=== PATIENT | female | born 1935 | race Caucasian/White ===

== ENCOUNTER 2018-01-28 02:43 | Inpatient (IN) | payer MEDICARE, OTHER ==
[2018-01-28 03:17] LABS: Bilirubin Negative (Negative); Blood, Urine Negative (Negative); Clarity CLOUDY (Clear); Glucose, Urine (Dipstick) Negative (Negative); Leukocyte Large (Negative); Nitrite Positive (Negative); Protein, Urine (Dipstick) Negative (Neg-Trace); Specific Gravity, Urine 1.008 (1.002-1.036)
[2018-01-28 03:19] LABS: Bacteria/HPF 4+ HPF (None Seen); Hyaline Casts/LPF 0-3 HYALINE CAST LPF (0-3 Hyaline); Pathc Cast-AUWi Flag 0.43 (0-2.49); RBC/HPF 0-3 HPF (0-3); Squamous Epithelial None Seen HPF (0-3); WBC/HPF 21-50 HPF (0-3)
[2018-01-28 03:22] LABS: Hemoglobin 15.5 g/dL (12.0-16.0); Mean Corpuscular HGB CONC 33.3 g/dL (32.0-36.0); Mean Corpuscular Hemoglobin 30.8 pg (27.0-31.0); Mean Corpuscular Volume 92.6 fL (78.0-98.0); Red Blood Cell (RBC) Count 5.04 mill/uL (4.20-5.40); White Blood Cell (WBC) Count 6.8 thou/uL (4.8-10.8)
[2018-01-28 03:37] LABS: #Lymphocytes 0.9 thou/uL (1.20-3.40); #Monocytes 0.4 thou/uL (0.11-0.59); #Neutrophils 5.5 thou/uL (1.40-6.50); %Basophils 0.4 % (0.0-1.0); %Eosinophils 0.5 % (0.0-10.0); %Lymphocytes 13.2 % (21.0-51.0); %Monocytes 5.3 % (0.0-10.0); %Neutrophils 80.7 % (42.0-75.0); Mean Platelet Volume 9.1 fL (7.4-10.4); PLT Morphology Comment Appears Decreased; Platelet Count 84 thou/uL (130-400)
[2018-01-28] MEDS ORDERED: Ondansetron PF 4 MG/2 ML Vial ONE ×2 (03:38→11:27)
[2018-01-28] MEDS ORDERED: Morphine 4 MG/ML VIAL ONE (03:38)
[2018-01-28 03:43] LABS: ALT (SGPT) 10 U/L (8-55); AST (SGOT) 16 U/L (5-34); Alkaline Phosphatase 63 U/L (40-150); Anion Gap 15 mmol/L (10-20); BUN (Urea Nitrogen) 22 mg/dL (9.8-20.1); Calc. Creatinine Clearance 0 mL/min (70-130); Calcium 10.3 mg/dL (7.8-10.44); Carbon Dioxide 23 mmol/L (23-31); Chloride 104 mmol/L (98-107); Estimated GFR-MDRD 37; Globulin 3.1 g/dL (2.4-3.5); Glucose 140 mg/dL (83-110); Lipase 42 U/L (8-78); Potassium 3.7 mmol/L (3.5-5.1); Protein, Total 7.1 g/dL (6.0-8.3); Sodium 138 mmol/L (136-145)
[2018-01-28] MEDS ORDERED: cefTRIAXone\\ROCEPHIN 1 GM VIAL ONE (03:45)
[2018-01-28 03:57] LABS: CKMB 1.4 ng/mL (0-6.6); Troponin I Less than 0.010 ng/mL (< 0.028)
[2018-01-28] MEDS ORDERED: Oxymetazoline HCl 0.05% ( 15 ML ) ONE (04:53)
[2018-01-28] MEDS ORDERED: Lidocaine 2% Jelly 5 ML TUBE ONE (04:53)
[2018-01-28] MEDS ORDERED: Fentanyl 100 MCG/2 ML VIAL ONE ×3 (06:09→12:35)
[2018-01-28] MEDS ORDERED: Ondansetron PF 4 MG/2 ML Vial IVP PRN (07:54)
[2018-01-28] MEDS ORDERED: Ondansetron ODT 4 MG TAB SL PRN (07:54)
[2018-01-28] MEDS ORDERED: Morphine 2 MG/ML SYRINGE SLOW IVP PRN (07:55)
[2018-01-28] MEDS ORDERED: D5 1/2 NS w/40 mEq KCL 1,000 ML IV SCH (08:00)
[2018-01-28 08:06] VITALS: BMI 17.2
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
[2018-01-28] MEDS ORDERED: ISOVUE-370 76%-LOCM 1 ML ONE (10:26)
[2018-01-28] MEDS ORDERED: cefOXitin 2 GM in Sodium Chloride 0.9% 100 ML IVPB SCH (10:30)
[2018-01-28] MEDS ORDERED: ePHEDrine/0.9% NaCl/PF SYRINGE 50 mg/10 ml ONE (11:27)
[2018-01-28] MEDS ORDERED: Succinylcholine Chloride 20 MG/ML 10 ml SYRINGE FS ONE (11:27)
[2018-01-28] MEDS ORDERED: Lidocaine 1% PF 5 ML VIAL ONE (11:27)
[2018-01-28] MEDS ORDERED: PROPOFOL 200 MG/20 ML VIAL ONE (11:27)
[2018-01-28] MEDS ORDERED: Glycopyrrolate 0.2 MG/ML 5 ML SYRINGE ONE (11:27)
[2018-01-28] MEDS ORDERED: PHENYLEPHRINE-NS 100 MCG/ML 10 ML SYRINGE ONE (11:27)
[2018-01-28] MEDS ORDERED: Promethazine HCl 25 MG/ML VIAL IM PRN ×2 (11:49→13:01)
[2018-01-28] MEDS ORDERED: Ondansetron HCl/PF 4 MG/2 ML Vial IVP PRN (11:49)
[2018-01-28] MEDS ORDERED: Promethazine HCl 25 MG/ML VIAL SLOW IVP PRN (11:49)
[2018-01-28] MEDS ORDERED: hydrALAZINE 20 MG/ML VIAL SLOW IVP PRN (13:01)
[2018-01-28] MEDS ORDERED: Morphine 4 MG/ML VIAL SLOW IVP PRN (13:01)
[2018-01-28] MEDS ORDERED: Acetaminophen 1,000 MG in Premix Bag 1 BAG IVPB SCH (13:15)
[2018-01-28] MEDS: Sodium Chloride 0.9% 1,000 ML IV SCH (13:55)
[2018-01-28] MEDS ORDERED: cefOXitin Sodium 1 GM in Sodium Chloride 0.9% 100 ML IVPB SCH (14:00)
--- NOTE | 2018-01-28 16:04 | CT ---
PRELIMINARY REPORT/[facility]/EMERGENTY AFTER-HOURS PROCEDURE Addendum created by Mack Ramos MD on 01/28/2018 4:45 AM Central Time ([place] & [place]) Findings disc ussed with Heraclio Ladd MD at time of interpretation. Initial Report created on 01/28/2018 4:31 AM Central Time ([place] & [place]) EXAM: CT Abdomen and Pelvis With Intravenous Contrast EXAM DATE/TIME: 01/28/2018 4:04 AM CLINICAL HISTORY: 82 years old, female; Pain; Abdominal pain; Generalized TECHNIQUE: Axial computed tomography images of the abdomen and pelvis with intravenous contrast. Coronal reformatted images were created and reviewed. COMPARISON: No relevant prior studies available. FINDINGS: Lower thorax: No acute findings. ABDOMEN: Liver: Normal. No mass. Gallbladder and bile ducts: Cholelithiasis. No cholecystitis or biliary ductal dilatation. Pancreas: Indeterminate 1.7 cm cystic lesion of the uncinate process of the pancreas, kidneys benign or malignant. Spleen: Normal. No splenomegaly. Adrenals: Normal. No mass. Kidneys and ureters: Chronic medical renal disease. Stomach and bowel: High-grade obstructing cecal volvulus resulting in obstruction of the proximal asc ending colon and obstruction of the distal ileum. No bowel wall thickening. No bowel wall thickening. Appendix: Appendix not confidently visualized. No evidence of appendicitis. PELVIS: Bladder: Unremarkable as visualized. Reproductive: Unremarkable as visualized. ABDOMEN and PELVIS: Intraperitoneal space: Trace volume ascites. No pneumoperitoneum or abscess. Bones/joints: Left hip prosthesis. Soft tissues: Unremarkable. Vasculature: IVC filter present. No pneumatosis or portal/mesenteric venous gas. Lymph nodes: Normal. No enlarged lymph nodes. Other findings: Right lower quadrant urostomy. IMPRESSION: High-grade obstructing cecal volvulus resulting in obstruction of the proximal ascending colon and ob struction of the distal ileum. Trace volume ascites. Recommend emergent surgical consultation. Thank you for allowing us to participate in the care of your patient. Dictated and Authenticated by: Mack Ramos MD 01/28/2018 4:31 AM Central Time ([place] & [place]) FINAL REPORT CT ABDOMEN AND PELVIS WITH CONTRAST: HISTORY: Abdominal pain. COMPARISON: CT from 2008. FINDINGS: Findings and impression are concordant with the preliminary report. Small volume ascites is concerni ng for ischemia of the cecum. There is an air fluid level indicating lack of normal motility. There is also dilatation of the renal collecting systems bilaterally, likely from mass effect from the ost xu. POS: EAMON
--- NOTE | 2018-01-28 17:40 | OP ---
DATE OF PROCEDURE: 01/28/2018 PREOPERATIVE DIAGNOSIS: Cecal volvulus. POSTOPERATIVE DIAGNOSIS: Cecal volvulus. PROCEDURES: Exploratory laparotomy, lysis of adhesions, right colectomy with isoperistaltic ileal tr ansverse colon anastomosis. SURGEON: Mg Martin M.D. ANESTHESIA: General. ESTIMATED BLOOD LOSS: Minimal. COMPLICATIONS: None. SPECIMEN: Right colon. FINDINGS: Cecal volvulus. TECHNIQUE: Patient was taken to the operating room and placed supine on the table. After general an esthetic was obtained, a Navas tube was placed in her urostomy and inflated to 2 mL. This controlled the urine from the urostomy during the procedure. The abdomen was prepped and draped in a sterile f ashion. The urostomy site is covered with a Tegaderm sterile. Midline incision was made, cut dissec t down into the abdominal cavity. Some of intraabdominal adhesions were taken down. There were obvi ous ischemic changes to the cecum. The right colon was mobilized. This was somewhat difficult becau se of the urostomy in the right lower quadrant. Care was taken to avoid injury or ostomy. Some adhe sions in the pelvis were taken down using sharp dissection. CELINA-75 stapler was fired across the term inal ileum, a reload was fired across the proximal transverse colon. The resultant mesentery was marizol en using impact LigaSure. The small bowel was brought up against the transverse colon in isoperistal tic antimesenteric fashion. Enterotomy was made on each and anastomosis performed using CELINA-75. The common enterotomy was closed using a running Vicryl suture, was oversewn using silk sutures. Crotch stitch placed using silk sutures. The mesenteric defect was closed using silk sutures. There was n o bleeding in the abdomen. The abdomen was irrigated using sterile solution. There was no damage to any intraabdominal structures. All instrument counts, needle counts, lap counts are correct. Midli ne fascia closed with #1 PDS from the top and the bottom and tied in the middle. Subcutaneous tissue s were irrigated and closed using 3-0 Vicryl, 4-0 Monocryl, and Dermabond. The patient was en route to recovery in stable condition. All instrument counts, needle counts, lap counts are correct.
[2018-01-28] MEDS: Acetaminophen 1,000 MG in Premix Bag 1 BAG IVPB SCH (17:48)
[2018-01-28] MEDS: cefOXitin Sodium 1 GM in Sodium Chloride 0.9% 100 ML IVPB SCH (18:45)
[2018-01-28] MEDS: Enoxaparin Sodium 40 MG/0.4 ML SYRINGE SC SCH (20:57)
[2018-01-28] MEDS: Famotidine/PF 20 mg/2ml Vial SLOW IVP SCH (20:57)
[2018-01-29] MEDS: Famotidine 20 MG TAB PO SCH ×3 (00:42→20:27)
[2018-01-29] MEDS: Acetaminophen 1,000 MG in Premix Bag 1 BAG IVPB SCH ×2 (00:43→06:03)
[2018-01-29] MEDS: Sodium Chloride 0.9% 1,000 ML IV SCH ×2 (00:48→10:18)
[2018-01-29] MEDS: cefOXitin Sodium 1 GM in Sodium Chloride 0.9% 100 ML IVPB SCH (02:52)
[2018-01-29 06:27] LABS: #Lymphocytes 0.7 thou/uL (1.20-3.40); #Monocytes 0.4 thou/uL (0.11-0.59); #Neutrophils 8.1 thou/uL (1.40-6.50); %Basophils 0.1 % (0.0-1.0); %Eosinophils 0.1 % (0.0-10.0); %Lymphocytes 7.2 % (21.0-51.0); %Monocytes 4.8 % (0.0-10.0); %Neutrophils 87.8 % (42.0-75.0); Hemoglobin 14.4 g/dL (12.0-16.0); Mean Corpuscular HGB CONC 31.9 g/dL (32.0-36.0); Mean Corpuscular Hemoglobin 30.1 pg (27.0-31.0); Mean Corpuscular Volume 94.3 fL (78.0-98.0); Mean Platelet Volume 9.7 fL (7.4-10.4); Platelet Count 85 thou/uL (130-400); RBC Distribution Width 12.4 % (11.5-14.5); White Blood Cell (WBC) Count 9.2 thou/uL (4.8-10.8)
[2018-01-29 06:28] LABS: Anion Gap 11 mmol/L (10-20); BUN (Urea Nitrogen) 20 mg/dL (9.8-20.1); Calc. Creatinine Clearance 22 mL/min (70-130); Calcium 8.7 mg/dL (7.8-10.44); Carbon Dioxide 21 mmol/L (23-31); Chloride 111 mmol/L (98-107); Estimated GFR-MDRD 36; Glucose 124 mg/dL (83-110); Potassium 4.1 mmol/L (3.5-5.1); Sodium 139 mmol/L (136-145)
--- NOTE | 2018-01-29 08:13 | PRG ---
DATE OF SERVICE: 01/29/2018 Postop day #1 right colectomy for cecal volvulus. Ms. Olsen has no complaints. She denies pain, naus ea. PHYSICAL EXAMINATION: VITAL SIGNS: She is afebrile. Vital signs are stable. Her NG tube is mostly clear. ABDOMEN: Soft, nondistended. Midline incision healing well. New ostomy is in place with clear urin e. ASSESSMENT: Postop day #1 right colectomy for cecal volvulus. PLAN: Discontinue NG, clear liquids. We will get her up and out of bed.
[2018-01-29] MEDS: Amlodipine 5 MG TAB PO SCH (10:07)
[2018-01-29] MEDS: Famotidine/PF 20 mg/2ml Vial SLOW IVP SCH ×2 (10:08→21:28)
[2018-01-29] MEDS: Morphine 2 MG/ML SYRINGE SLOW IVP PRN ×2 (10:31→16:59)
[2018-01-29] MEDS: Ondansetron PF 4 MG/2 ML Vial IVP PRN (19:35)
[2018-01-29] MEDS: Enoxaparin Sodium 40 MG/0.4 ML SYRINGE SC SCH (20:26)
[2018-01-30] MEDS: Sodium Chloride 0.9% 1,000 ML IV SCH ×3 (02:00→15:24)
[2018-01-30] MEDS: Morphine 2 MG/ML SYRINGE SLOW IVP PRN ×2 (03:02→15:16)
[2018-01-30] MEDS: Famotidine 20 MG TAB PO SCH ×2 (10:03→21:30)
[2018-01-30] MEDS: Famotidine/PF 20 mg/2ml Vial SLOW IVP SCH ×2 (10:03→21:30)
[2018-01-30] MEDS: Amlodipine 5 MG TAB PO SCH (10:03)
[2018-01-30] MEDS ORDERED: Digoxin 0.125 MG TAB PO SCH (10:45)
[2018-01-30] MEDS ORDERED: Diltiazem 125 MG in Sodium Chloride 0.9% 100 ML IVPB PRN (12:12)
--- NOTE | 2018-01-30 12:51 | PDOC.PN ---
- Subjective Encounter Start Date: 01/30/18 Encounter Start Time: 12:50 Subjective: briseida & examined at bedside.IM team consulted for a-fib w Fast HR -: pt reports no chest discomfort,palpitations,SOB.dizziness/nausea -: no h/o same. - Objective Resuscitation Status: 01/30/18 11:45 Resuscitation Status Routine Resuscitation Status: DNAR: NO Resuscitation Discussed with: Per comment, discussed with patient and she understood MAR Reviewed: Yes Vital Signs & Weight: Vital Signs (12 hours) Temp Pulse Resp BP BP BP Pulse Ox 01/30/18 11:57 109 H 16 135/81 01/30/18 11:48 132 H 125/76 01/30/18 11:08 144 H 01/30/18 10:58 99.4 F 135 H 18 131/92 H 98 01/30/18 10:03 125 H 01/30/18 08:00 99.0 F 18 124/66 95 01/30/18 07:30 125 H 01/30/18 04:50 98.2 F 90 16 132/70 100 01/30/18 03:15 97 Weight Admit Weight 100 lb 9 oz Weight 100 lb 9 oz I&O: 01/29/18 01/30/18 01/31/18 06:59 06:59 06:59 Intake Total 700 2390 Output Total 350 1400 Balance 350 990 Result Diagrams: 01/29/18 05:19 01/29/18 05:19 Additional Labs: Laboratory Tests 06/29/17 01/28/18 01/28/18 09:08 03:08 03:08 Creatinine 1.25 H 1.36 H Troponin I Less than 0.010 B-Natriuretic Peptide 01/29/18 01/30/18 05:19 09:50 Creatinine 1.40 H Troponin I B-Natriuretic Peptide 400.2 H EKG Reviewed by me: Yes (A-fib w RVR) Phys Exam - Physical Examination Constitutional: NAD thin and frail looking HEENT: PERRLA, sclera anicteric, oral pharynx no lesions mucosa dry Neck: no nodes, no JVD, supple, full ROM Respiratory: no wheezing, no rales, no rhonchi, clear to auscultation bilateral Cardiovascular: no significant murmur, irregular Gastrointestinal: soft, non-tender, no distention, positive bowel sounds urostomy in abdomen in place w clear urine Musculoskeletal: no edema, pulses present Neurological: non-focal, normal sensation, moves all 4 limbs Psychiatric: normal affect, A&O x 3 Skin: no rash Dx/Plan (1) Atrial fibrillation with RVR Code(s): I48.91 - UNSPECIFIED ATRIAL FIBRILLATION Status: Acute (2) UTI (urinary tract infection) Status: Acute Comment: on levaquin (3) Thrombocytopenia Code(s): D69.6 - THROMBOCYTOPENIA, UNSPECIFIED Status: Acute (4) Volvulus Code(s): K56.2 - VOLVULUS Status: Acute Comment: s/p R hemicolectomy .POD#2 (5) H/O malignant neoplasm of colon Code(s): Z85.038 - PERSONAL HISTORY OF MALIGNANT NEOPLASM OF LARGE INTESTINE Status: Chronic (6) CKD (chronic kidney disease) stage 3, GFR 30-59 ml/min Status: Chronic (7) HTN (hypertension) Code(s): I10 - ESSENTIAL (PRIMARY) HYPERTENSION Status: Chronic Qualifiers: Hypertension type: essential hypertension Qualified Code(s): I10 - Essential (primary) hypertension (8) History of bladder cancer Code(s): Z85.51 - PERSONAL HISTORY OF MALIGNANT NEOPLASM OF BLADDER Status: Chronic - Plan continue antibiotics, PT/OT, clinical social work therapist, out of bed/ambulate, DVT proph w/ lovenox one dos edigoxin as IV Cardiazem couldn't be given on surgical floor -: transfer to Tele & will try cardiazem IV bolus,& drip if HR not controlled -: ECHO.BNP.TSH check.Serial troponins.lyle due to stress from Sx and infect -: Not a candidate for OAC due to recent Sx and advanced age/TCP/comorbidities -: Monitor BP.Stop amlodipine as will lyle need PO CCB or BB for rate contro * .will continue to follow. * HD stable for now * Send urine for Cx and cont ABx for now.no evidence of sepsis. * Low platelets.monitor.cont DVT prophylactic dose of lovenox for now as high risk for DVT. * code status discussed -Says she is a DNR.Order entered * am labs Review of Systems - Review of Systems Constitutional: negative: fever, chills, sweats, weakness, malaise, other Respiratory: Dry. negative: Cough, Shortness of Breath, Hemoptysis, SOB with Excertion, Pleuritic Pain, Sputum, Wheezing Cardiovascular: negative: chest pain, palpitations, orthopnea, paroxysmal nocturnal dyspnea, edema, light headedness, other Gastrointestinal: negative: Nausea, Vomiting, Abdominal Pain, Diarrhea, Constipation, Melena, Hematochezia, Other Genitourinary: negative: Dysuria, Frequency, Incontinence, Hematuria, Retention , Other Musculoskeletal: negative: Neck Pain, Shoulder Pain, Arm Pain, Back Pain, Hand Pain, Leg Pain, Foot Pain, Other Skin: negative: Rash, Lesions, Joe, Bruising, Other Neurological: negative: Weakness, Numbness, Incoordination, Change in Speech, Confusion, Seizures, Other - Medications/Allergies Allergies/Adverse Reactions: Allergies Allergy/AdvReac Type Severity Reaction Status Date / Time diphenhydramine HCl Allergy Severe Verified 01/28/18 08:13 [From [facility]] Hives Medications: Current Medications Albuterol/Ipratropium (Duoneb) 3 ml NEB Q4H PRN PRN Reason: Wheezing Diltiazem HCl (Cardizem Inj) 10 mg SLOW IVP ONE PRN PRN Reason: for HR> 100 Stop: 02/02/18 09:41 Last Admin: 01/30/18 11:48 Dose: 10 mg Enoxaparin Sodium (Lovenox) 40 mg SC 2100 [facility] Last Admin: 01/29/18 20:26 Dose: 40 mg Famotidine (Pepcid) 20 mg PO Q12HR [facility] Last Admin: 01/30/18 10:03 Dose: Not Given Famotidine (Pepcid) 20 mg SLOW IVP Q12HR [facility] Last Admin: 01/30/18 10:03 Dose: Not Given Hydralazine HCl (Apresoline) 10 mg SLOW IVP Q4H PRN PRN Reason: SBP > 170 or DBP > 100 Sodium Chloride (Normal Saline 0.9%) 1,000 mls @ 70 mls/hr IV .[id number] [facility] Last Admin: 01/30/18 02:00 Dose: 1,000 mls Levofloxacin 500 mg/ Device 100 mls @ 100 mls/hr IVPB Q24HR [facility] Last Admin: 01/30/18 11:24 Dose: 100 mls Diltiazem HCl 125 mg/ Sodium (Chloride) 125 mls @ 5 mls/hr IVPB INF PRN; Protocol PRN Reason: HR>120 Morphine Sulfate (Morphine) 2 mg SLOW IVP Q2H PRN PRN Reason: Mild Pain (1-3) Last Admin: 01/30/18 03:02 Dose: 2 mg Morphine Sulfate (Morphine) 4 mg SLOW IVP Q2H PRN PRN Reason: Severe Pain (7-10) Ondansetron HCl (Zofran) 4 mg IVP Q6H PRN PRN Reason: Nausea/Vomiting Last Admin: 01/29/18 19:35 Dose: 4 mg Promethazine HCl (Phenergan) 12.5 mg IM Q4H PRN PRN Reason: Nausea/Vomiting Sodium Chloride (Flush - Normal Saline) 10 ml IVF PRN PRN PRN Reason: Saline Flush
--- NOTE | 2018-01-30 13:15 | EKG ---
Test Reason : Blood Pressure : / mmHG Vent. Rate : 155 BPM Atrial Rate : 150 BPM P-R Int : 000 ms QRS Dur : 080 ms QT Int : 282 ms P-R-T Axes : 000 -17 165 degrees QTc Int : 453 ms Atrial fibrillation with rapid ventricular response Abnormal ECG When compared with ECG of 28-JAN-2018 02:51, (Unconfirmed) Atrial fibrillation has replaced Sinus rhythm Vent. rate has increased BY [address] now depressed in Anterolateral leads T wave inversion now evident in Lateral leads Confirmed by ERICK TODD, DR. Weinstein ([id number]) on 01/30/2018 1:15:35 PM Referred By: YASMIN Confirmed By:DR. Js SUAREZ MD
[2018-01-30 13:30] LABS: Troponin I Less than 0.010 ng/mL (< 0.028)
[2018-01-30] MEDS: Ondansetron PF 4 MG/2 ML Vial IVP PRN (15:14)
[2018-01-30 16:47] LABS: Troponin I 0.019 ng/mL (< 0.028)
--- NOTE | 2018-01-30 17:27 | PRG ---
DATE OF SERVICE: 01/30/2018 SUBJECTIVE: Ms. Olsen had a rapid heart rate this morning, transferred to Telemetry with rapid ventricular rate, AFib. She states that she is slightly more distended today, has mild nausea. She is passing some gas. She has not been up and out of bed today because of the fast heart rate. She is about to have Cardizem drip started. OBJECTIVE: VITAL SIGNS: Her blood pressure is 135/81, pulse is 109, respirations are 16. Urine output is 750 overnight. LABORATORY DATA: Sodium 139, potassium 4.1, creatinine 1.4. Sugar is 124. ASSESSMENT: Postoperative day 2, right colectomy for cecal volvulus, now complicated by postoperative atrial fibrillation and rapid ventricular rate. PLAN: Appreciate Dr. Frost, with the hospitalist assistance in her care. Keep on clear liquids today. Hopefully, at least get up to the chair this afternoon once her heart rate is better. Job ID: [id number]
[2018-01-30 19:29] LABS: Troponin I 0.017 ng/mL (< 0.028)
[2018-01-30 21:18] LABS: Platelet Count 73 thou/uL (130-400)
[2018-01-30] MEDS: Enoxaparin Sodium 40 MG/0.4 ML SYRINGE SC SCH (21:27)
[2018-01-31] MEDS: Ondansetron PF 4 MG/2 ML Vial IVP PRN ×2 (03:14→21:23)
[2018-01-31] MEDS: Sodium Chloride 0.9% 1,000 ML IV SCH ×2 (05:39→08:18)
[2018-01-31 05:55] LABS: #Lymphocytes 0.8 thou/uL (1.20-3.40); #Monocytes 0.2 thou/uL (0.11-0.59); #Neutrophils 7.1 thou/uL (1.40-6.50); %Basophils 0.2 % (0.0-1.0); %Eosinophils 0.4 % (0.0-10.0); %Lymphocytes 9.3 % (21.0-51.0); %Monocytes 2.3 % (0.0-10.0); %Neutrophils 87.9 % (42.0-75.0); Hemoglobin 15.1 g/dL (12.0-16.0); Mean Corpuscular HGB CONC 32.4 g/dL (32.0-36.0); Mean Corpuscular Hemoglobin 30.8 pg (27.0-31.0); Mean Corpuscular Volume 95.1 fL (78.0-98.0); Mean Platelet Volume 9.1 fL (7.4-10.4); Platelet Count 126 thou/uL (130-400); RBC Distribution Width 12.2 % (11.5-14.5); White Blood Cell (WBC) Count 8.1 thou/uL (4.8-10.8)
[2018-01-31 06:07] LABS: Anion Gap 21 mmol/L (10-20); BUN (Urea Nitrogen) 22 mg/dL (9.8-20.1); Calc. Creatinine Clearance 30 mL/min (70-130); Calcium 8.9 mg/dL (7.8-10.44); Carbon Dioxide 12 mmol/L (23-31); Chloride 113 mmol/L (98-107); Estimated GFR-MDRD 53; Glucose 139 mg/dL (83-110); Potassium 3.7 mmol/L (3.5-5.1); Sodium 142 mmol/L (136-145)
[2018-01-31] MEDS: Famotidine 20 MG TAB PO SCH ×2 (08:12→21:23)
[2018-01-31] MEDS: Famotidine/PF 20 mg/2ml Vial SLOW IVP SCH ×2 (08:16→21:23)
[2018-01-31] MEDS ORDERED: Diltiazem HCl SR 60 mg Capsule PO SCH (09:00)
[2018-01-31] MEDS ORDERED: Metoprolol Tartrate 25 MG TAB PO SCH (11:15)
--- NOTE | 2018-01-31 14:00 | PDOC.PN ---
- Subjective Encounter Start Date: 01/31/18 Encounter Start Time: 13:58 Subjective: feels weak and tired.no CP/SOB/palpitations -: no nausea/vomiting - Objective Resuscitation Status - Order Detail: 01/30/18 11:45 Resuscitation Status Routine Resuscitation Status: DNAR: NO Resuscitation Discussed with: Per comment, discussed with patient and she understood MAR Reviewed: Yes Vital Signs & Weight: Vital Signs (12 hours) Temp Pulse Resp BP Pulse Ox 01/31/18 11:29 98.5 F 95 16 164/76 H 97 01/31/18 08:00 97 01/31/18 07:00 97.7 F 99 16 167/77 H 97 01/31/18 03:24 98.4 F 92 18 166/75 H 97 Weight Admit Weight 100 lb 9 oz Weight 100 lb 9 oz I&O: 01/30/18 01/31/18 02/01/18 06:59 06:59 06:59 Intake Total 2390 1595 120 Output Total 1400 1130 Balance 990 465 120 Result Diagrams: 01/31/18 05:20 01/31/18 05:20 Additional Labs: Microbiology 01/30/18 16:06 Urine clean catch Urine Culture - Preliminary NO GROWTH AT 24 HOURS Laboratory Tests 01/28/18 01/28/18 01/29/18 03:08 03:08 05:19 Creatinine 1.36 H 1.40 H Troponin I Less than 0.010 TSH 3rd Generation 01/30/18 01/30/18 01/30/18 09:50 09:50 16:06 Creatinine Troponin I Less than 0.010 0.019 TSH 3rd Generation [id number] 01/30/18 01/31/18 18:57 05:20 Creatinine 1.00 Troponin I 0.017 TSH 3rd Generation Phys Exam - Physical Examination Constitutional: NAD HEENT: PERRLA, moist MMs, sclera anicteric, oral pharynx no lesions Neck: no nodes, no JVD, supple, full ROM Respiratory: no wheezing, no rales, no rhonchi, clear to auscultation bilateral Cardiovascular: RRR, no significant murmur Gastrointestinal: soft, non-tender, no distention, positive bowel sounds Musculoskeletal: no edema, pulses present Neurological: non-focal, normal sensation, moves all 4 limbs Psychiatric: normal affect, A&O x 3 Skin: no rash Dx/Plan (1) Atrial fibrillation with RVR Code(s): I48.91 - UNSPECIFIED ATRIAL FIBRILLATION Status: Acute Comment: NSR now. (2) High anion gap metabolic acidosis Code(s): E87.2 - ACIDOSIS Status: Acute (3) UTI (urinary tract infection) Status: Acute Comment: on levaquin (4) Thrombocytopenia Code(s): D69.6 - THROMBOCYTOPENIA, UNSPECIFIED Status: Acute Comment: Improving (5) Volvulus Code(s): K56.2 - VOLVULUS Status: Acute Comment: s/p R hemicolectomy .POD#3 (6) H/O malignant neoplasm of colon Code(s): Z85.038 - PERSONAL HISTORY OF MALIGNANT NEOPLASM OF LARGE INTESTINE Status: Chronic (7) CKD (chronic kidney disease) stage 3, GFR 30-59 ml/min Status: Chronic (8) HTN (hypertension) Code(s): I10 - ESSENTIAL (PRIMARY) HYPERTENSION Status: Chronic Qualifiers: Hypertension type: essential hypertension Qualified Code(s): I10 - Essential (primary) hypertension (9) History of bladder cancer Code(s): Z85.51 - PERSONAL HISTORY OF MALIGNANT NEOPLASM OF BLADDER Status: Chronic - Plan continue antibiotics, PT/OT, respiratory therapy, incentive spirometry, out of bed/ambulate, DVT proph w/SCDs NSR. stop CCB drip .add BB as hospital has Cardiazem SR shortage -: ECHO unremarkable and serial troponin negative.no OAC as poor candidate -: OAC iscussed w family & encouraged to follow up OP cardiology -: will give referral to cardiology.no OAC in immediate Post-op period -: A-fib has resolved and no previous history.suspect d/t physiological stress * .Add OT/PT. * monitor platelets * renal Fx much improved * High AG MA-check lactic acid.IVF * IM team will follow Review of Systems - Review of Systems Constitutional: weakness, malaise ENT: negative: Ear Pain, Ear Discharge, Nose Pain, Nose Discharge, Nose Congestion, Mouth Pain, Mouth Swelling, Throat Pain, Throat Swelling, Other Cardiovascular: negative: chest pain, palpitations, orthopnea, paroxysmal nocturnal dyspnea, edema, light headedness, other Gastrointestinal: negative: Nausea, Vomiting, Abdominal Pain, Diarrhea, Constipation, Melena, Hematochezia, Other Genitourinary: negative: Dysuria, Frequency, Incontinence, Hematuria, Retention , Other Musculoskeletal: negative: Neck Pain, Shoulder Pain, Arm Pain, Back Pain, Hand Pain, Leg Pain, Foot Pain, Other Skin: negative: Rash, Lesions, Joe, Bruising, Other Neurological: negative: Weakness, Numbness, Incoordination, Change in Speech, Confusion, Seizures, Other - Medications/Allergies Allergies/Adverse Reactions: Allergies Allergy/AdvReac Type Severity Reaction Status Date / Time diphenhydramine HCl Allergy Severe Verified 01/28/18 08:13 [From [facility]] Hives Medications: Current Medications Albuterol/Ipratropium (Duoneb) 3 ml NEB Q4H PRN PRN Reason: Wheezing Diltiazem HCl (Cardizem Inj) 10 mg SLOW IVP ONE PRN PRN Reason: for HR> 100 Stop: 02/02/18 09:41 Last Admin: 01/30/18 11:48 Dose: 10 mg Enoxaparin Sodium (Lovenox) 40 mg SC 2100 [facility] Famotidine (Pepcid) 20 mg PO Q12HR [facility] Last Admin: 01/31/18 08:12 Dose: Not Given Famotidine (Pepcid) 20 mg SLOW IVP Q12HR [facility] Last Admin: 01/31/18 08:16 Dose: 20 mg Hydralazine HCl (Apresoline) 10 mg SLOW IVP Q4H PRN PRN Reason: SBP > 170 or DBP > 100 Levofloxacin 500 mg/ Device 100 mls @ 100 mls/hr IVPB Q24HR [facility] Last Admin: 01/31/18 08:16 Dose: 100 mls Sodium Chloride (Normal Saline 0.9%) 1,000 mls @ 50 mls/hr IV .Q20H [facility] Last Admin: 01/31/18 08:18 Dose: 1,000 mls Metoprolol Tartrate (Lopressor) 25 mg PO BID [facility] Morphine Sulfate (Morphine) 2 mg SLOW IVP Q2H PRN PRN Reason: Mild Pain (1-3) Last Admin: 01/30/18 15:16 Dose: 2 mg Morphine Sulfate (Morphine) 4 mg SLOW IVP Q2H PRN PRN Reason: Severe Pain (7-10) Ondansetron HCl (Zofran) 4 mg IVP Q6H PRN PRN Reason: Nausea/Vomiting Last Admin: 01/31/18 03:14 Dose: 4 mg Promethazine HCl (Phenergan) 12.5 mg IM Q4H PRN PRN Reason: Nausea/Vomiting Sodium Chloride (Flush - Normal Saline) 10 ml IVF PRN PRN PRN Reason: Saline Flush
--- NOTE | 2018-01-31 15:21 | PRG ---
DATE OF SERVICE: 01/31/2018 SUBJECTIVE: Postoperative day 3 right colectomy for cecal volvulus. Ms. Olsen is doing much better today. She is in sinus rhythm. She has no nausea. She is passing gas. She even had a small bowel movement. She is afebrile. Vital signs are stable. Abdomen is soft, minimally distended. Wound healing well. ASSESSMENT: Postoperative day 3 right colectomy. PLAN: Full liquid diet. She really needs to be ambulating much more in the hallway. We will put in consult for Case Management for possible mcc. Job ID: [id number]
[2018-01-31] MEDS ORDERED: traZODone HCl 50 MG TAB PO PRN (18:22)
[2018-01-31] MEDS: Enoxaparin Sodium 40 MG/0.4 ML SYRINGE SC SCH (21:22)
[2018-01-31] MEDS: Morphine 2 MG/ML SYRINGE SLOW IVP PRN (21:23)
[2018-01-31] MEDS: Metoprolol Tartrate 25 MG TAB PO SCH (21:23)
[2018-02-01 06:17] LABS: #Lymphocytes 0.9 thou/uL (1.20-3.40); #Monocytes 0.5 thou/uL (0.11-0.59); #Neutrophils 5.3 thou/uL (1.40-6.50); %Basophils 0.1 % (0.0-1.0); %Eosinophils 0.2 % (0.0-10.0); %Lymphocytes 13.6 % (21.0-51.0); %Monocytes 7.5 % (0.0-10.0); %Neutrophils 78.7 % (42.0-75.0); Hemoglobin 15.2 g/dL (12.0-16.0); Mean Corpuscular HGB CONC 33.3 g/dL (32.0-36.0); Mean Corpuscular Hemoglobin 31.1 pg (27.0-31.0); Mean Corpuscular Volume 93.5 fL (78.0-98.0); Mean Platelet Volume 8.2 fL (7.4-10.4); Platelet Count 158 thou/uL (130-400); RBC Distribution Width 12.2 % (11.5-14.5); Red Blood Cell (RBC) Count 4.89 mill/uL (4.20-5.40); White Blood Cell (WBC) Count 6.8 thou/uL (4.8-10.8)
[2018-02-01 06:33] LABS: Anion Gap 11 mmol/L (10-20); BUN (Urea Nitrogen) 22 mg/dL (9.8-20.1); Calc. Creatinine Clearance 34 mL/min (70-130); Calcium 8.8 mg/dL (7.8-10.44); Carbon Dioxide 20 mmol/L (23-31); Chloride 114 mmol/L (98-107); Estimated GFR-MDRD 60; Glucose 145 mg/dL (83-110); Potassium 3.3 mmol/L (3.5-5.1); Sodium 142 mmol/L (136-145)
[2018-02-01] MEDS ORDERED: cloNIDine 0.1 MG TAB PO PRN (08:56)
[2018-02-01] MEDS: Famotidine/PF 20 mg/2ml Vial SLOW IVP SCH ×2 (09:42→20:11)
[2018-02-01] MEDS: Famotidine 20 MG TAB PO SCH ×2 (09:42→21:49)
[2018-02-01] MEDS: Morphine 2 MG/ML SYRINGE SLOW IVP PRN (09:43)
[2018-02-01] MEDS: Metoprolol Tartrate 25 MG TAB PO SCH ×2 (09:46→21:49)
--- NOTE | 2018-02-01 10:20 | PRG ---
DATE OF SERVICE: 02/01/2018 SUBJECTIVE: Postop day 4 right colectomy for cecal volvulus. Ms. Olsen does not feel well today. She has more nausea. She states she is hurting this morning and bloated. She does state that she is still passing gas. She was very confused last night, but more alert this morning. OBJECTIVE: VITAL SIGNS: Her pulse is 75, blood pressure is 173/82. She is afebrile. Respiratory rate is 18, O2 saturation 96% on room air. Urine output 700 overnight. ABDOMEN: Distended. There is decreased bowel sounds. She is diffuse, mildly tender. LABORATORY DATA: White blood cell count is 6.8, hemoglobin 15, and platelet count is 158. Creatinine 0.9, sodium 142, and potassium 3.3. ASSESSMENT: Postop day 4 right colectomy for cecal volvulus. PLAN: 1. She is in sinus now, probably transfer her back to surgical floor. 2. Expected postop ileus, resolving slowly, were limited in activity, that is probably contributing. Hopefully, as she becomes more active, her ileus will resolve. Job ID: [id number]
--- NOTE | 2018-02-01 13:06 | PDOC.PN ---
- Subjective Encounter Start Date: 02/01/18 Encounter Start Time: 13:04 Subjective: had a rough night & could not sleep.tired this morning -: denies any SOB/CP. some more abd pain today but no vomiting - Objective Resuscitation Status - Order Detail: 01/30/18 11:45 Resuscitation Status Routine Resuscitation Status: DNAR: NO Resuscitation Discussed with: Troy TODD comment, discussed with patient and she understood MAR Reviewed: Yes Vital Signs & Weight: Vital Signs (12 hours) Temp Pulse Pulse Pulse Resp BP BP 02/01/18 09:04 77 75 174/81 H 172/80 H 02/01/18 08:24 98.2 F 75 18 02/01/18 04:00 98.3 F 75 16 BP Pulse Ox 02/01/18 09:04 02/01/18 08:24 173/82 H 96 02/01/18 04:00 163/80 H 96 Weight Admit Weight 100 lb 9 oz Weight 100 lb 9 oz I&O: 01/31/18 02/01/18 02/02/18 06:59 06:59 06:59 Intake Total 1595 1520 Output Total 1130 1275 225 Balance 465 245 -225 Result Diagrams: 02/01/18 05:43 02/01/18 05:43 Additional Labs: Microbiology 01/30/18 16:06 Urine clean catch Urine Culture - Preliminary NO GROWTH AT 24 HOURS Laboratory Tests 01/28/18 01/28/18 01/29/18 03:08 03:08 05:19 Plt Count 84 L Carbon Dioxide 21 L Anion Gap Creatinine 1.36 H 1.40 H 01/29/18 01/30/18 01/31/18 05:19 21:07 05:20 Plt Count 85 L 73 L Carbon Dioxide 12 L Anion Gap 21 H Creatinine 1.00 01/31/18 02/01/18 05:20 05:43 Plt Count 126 L Carbon Dioxide 20 L Anion Gap 11 Creatinine Phys Exam - Physical Examination Constitutional: NAD thin and frail HEENT: PERRLA, moist MMs, sclera anicteric, oral pharynx no lesions Neck: no nodes, no JVD, supple, full ROM Respiratory: no wheezing, no rales, no rhonchi, clear to auscultation bilateral Cardiovascular: RRR, no significant murmur Gastrointestinal: soft, non-tender, no distention, positive bowel sounds urostomy bag Musculoskeletal: no edema, pulses present Neurological: non-focal, normal sensation, moves all 4 limbs Psychiatric: normal affect, A&O x 3 Skin: no rash Dx/Plan (1) Atrial fibrillation with RVR Code(s): I48.91 - UNSPECIFIED ATRIAL FIBRILLATION Status: Acute Comment: NSR now. (2) High anion gap metabolic acidosis Code(s): E87.2 - ACIDOSIS Status: Acute Comment: improving (3) UTI (urinary tract infection) Status: Acute Comment: on levaquin (4) Thrombocytopenia Code(s): D69.6 - THROMBOCYTOPENIA, UNSPECIFIED Status: Acute Comment: Improving (5) Volvulus Code(s): K56.2 - VOLVULUS Status: Acute Comment: s/p R hemicolectomy .POD#3 (6) H/O malignant neoplasm of colon Code(s): Z85.038 - PERSONAL HISTORY OF MALIGNANT NEOPLASM OF LARGE INTESTINE Status: Chronic (7) CKD (chronic kidney disease) stage 3, GFR 30-59 ml/min Status: Chronic (8) HTN (hypertension) Code(s): I10 - ESSENTIAL (PRIMARY) HYPERTENSION Status: Chronic Qualifiers: Hypertension type: essential hypertension Qualified Code(s): I10 - Essential (primary) hypertension (9) History of bladder cancer Code(s): Z85.51 - PERSONAL HISTORY OF MALIGNANT NEOPLASM OF BLADDER Status: Chronic - Plan plan discussed w/ family, continue antibiotics, PT/OT, out of bed/ambulate, DVT proph w/SCDs HR controlled on metoprolol.continue.echo reviewed.nl EF -: NSR now.poor candidate for OAC.cont Lovenox @ DVT prophylaxis dose -: BP high. add PRN meds.may add Amlodipine back if remians high -: HD stable.OK to Transfer to Surgical floor -: OT/PT.rehab when accpeted.Platelets better.follow Cx results * . Review of Systems - Review of Systems Constitutional: weakness, malaise. negative: fever, chills, sweats, other Respiratory: negative: Cough, Dry, Shortness of Breath, Hemoptysis, SOB with Excertion, Pleuritic Pain, Sputum, Wheezing Cardiovascular: negative: chest pain, palpitations, orthopnea, paroxysmal nocturnal dyspnea, edema, light headedness, other Gastrointestinal: Abdominal Pain. negative: Nausea, Vomiting, Diarrhea, Constipation, Melena, Hematochezia, Other Genitourinary: negative: Dysuria, Frequency, Incontinence, Hematuria, Retention , Other Musculoskeletal: negative: Neck Pain, Shoulder Pain, Arm Pain, Back Pain, Hand Pain, Leg Pain, Foot Pain, Other Skin: negative: Rash, Lesions, Joe, Bruising, Other - Medications/Allergies Allergies/Adverse Reactions: Allergies Allergy/AdvReac Type Severity Reaction Status Date / Time diphenhydramine HCl Allergy Severe Verified 01/28/18 08:13 [[facility] [place] Hives Medications: Current Medications Albuterol/Ipratropium (Duoneb) 3 ml NEB Q4H PRN PRN Reason: Wheezing Clonidine (Catapres) 0.1 mg PO Q4H PRN PRN Reason: SBP>160 Diltiazem HCl (Cardizem Inj) 10 mg SLOW IVP ONE PRN PRN Reason: for HR> 100 Stop: 02/02/18 09:41 Last Admin: 01/30/18 11:48 Dose: 10 mg Enoxaparin Sodium (Lovenox) 40 mg SC 2100 [facility] Last Admin: 01/31/18 21:22 Dose: 40 mg Famotidine (Pepcid) 20 mg PO Q12HR [facility] Last Admin: 02/01/18 09:42 Dose: Not Given Famotidine (Pepcid) 20 mg SLOW IVP Q12HR [facility] Last Admin: 02/01/18 09:42 Dose: 20 mg Hydralazine HCl (Apresoline) 10 mg SLOW IVP Q4H PRN PRN Reason: SBP > 170 or DBP > 100 Levofloxacin 500 mg/ Device 100 mls @ 100 mls/hr IVPB Q24HR [facility] Last Admin: 02/01/18 09:42 Dose: 100 mls Metoprolol Tartrate (Lopressor) 25 mg PO BID [facility] Last Admin: 02/01/18 09:46 Dose: 25 mg Morphine Sulfate (Morphine) 2 mg SLOW IVP Q2H PRN PRN Reason: Mild Pain (1-3) Last Admin: 02/01/18 09:43 Dose: 2 mg Morphine Sulfate (Morphine) 4 mg SLOW IVP Q2H PRN PRN Reason: Severe Pain (7-10) Ondansetron HCl (Zofran) 4 mg IVP Q6H PRN PRN Reason: Nausea/Vomiting Last Admin: 01/31/18 21:23 Dose: 4 mg Promethazine HCl (Phenergan) 12.5 mg IM Q4H PRN PRN Reason: Nausea/Vomiting Sodium Chloride (Flush - Normal Saline) 10 ml IVF PRN PRN PRN Reason: Saline Flush Tramadol HCl (Ultram) 50 mg PO Q6H PRN PRN Reason: Mild Pain (1-3) 2ND LINE Trazodone HCl (Desyrel) 50 mg PO HSPRN PRN PRN Reason: Insomnia
[2018-02-01] MEDS ORDERED: Acetaminophen 1,000 MG in Premix Bag 1 BAG IVPB PRN (20:08)
[2018-02-01] MEDS: Enoxaparin Sodium 40 MG/0.4 ML SYRINGE SC SCH (21:49)
[2018-02-02 06:07] LABS: #Monocytes 0.7 thou/uL (0.11-0.59); #Neutrophils 3.2 thou/uL (1.40-6.50); %Basophils 0.9 % (0.0-1.0); %Eosinophils 0.5 % (0.0-10.0); %Lymphocytes 20.2 % (21.0-51.0); %Monocytes 14.2 % (0.0-10.0); %Neutrophils 64.2 % (42.0-75.0); Hemoglobin 15.3 g/dL (12.0-16.0); Mean Corpuscular HGB CONC 33.3 g/dL (32.0-36.0); Mean Corpuscular Hemoglobin 30.9 pg (27.0-31.0); Mean Corpuscular Volume 92.7 fL (78.0-98.0); Mean Platelet Volume 8.8 fL (7.4-10.4); Platelet Count 158 thou/uL (130-400); RBC Distribution Width 12.1 % (11.5-14.5); Red Blood Cell (RBC) Count 4.94 mill/uL (4.20-5.40)
[2018-02-02 06:17] LABS: Anion Gap 12 mmol/L (10-20); BUN (Urea Nitrogen) 23 mg/dL (9.8-20.1); Calc. Creatinine Clearance 34 mL/min (70-130); Carbon Dioxide 25 mmol/L (23-31); Chloride 110 mmol/L (98-107); Estimated GFR-MDRD 61; Glucose 122 mg/dL (83-110); Potassium 3.5 mmol/L (3.5-5.1); Sodium 143 mmol/L (136-145)
[2018-02-02] MEDS: Metoprolol Tartrate 25 MG TAB PO SCH ×2 (09:32→20:55)
[2018-02-02] MEDS: Famotidine 20 MG TAB PO SCH ×2 (09:33→20:55)
[2018-02-02] MEDS: Famotidine/PF 20 mg/2ml Vial SLOW IVP SCH ×2 (09:33→20:55)
[2018-02-02] MEDS: Morphine 2 MG/ML SYRINGE SLOW IVP PRN ×2 (13:22→17:43)
--- NOTE | 2018-02-02 14:34 | PDOC.PN ---
- Subjective Encounter Start Date: 02/02/18 Encounter Start Time: 07:20 Pt seen for followup re: atrial fibrillation. Denies chest pain, shortness of breath, fevers or chills. - Objective Resuscitation Status - Order Detail: 01/30/18 11:45 Resuscitation Status Routine Resuscitation Status: DNAR: NO Resuscitation Discussed with: Per MD comment, discussed with patient and she understood MAR Reviewed: Yes Vital Signs & Weight: Vital Signs (12 hours) Temp Pulse Resp BP Pulse Ox 02/02/18 11:18 98.4 F 74 16 146/89 H 94 L 02/02/18 08:00 98.3 F 83 16 149/80 H 94 L 02/02/18 04:00 98.4 F 81 14 171/93 H 96 Weight Admit Weight 100 lb 9 oz Weight 100 lb 9 oz I&O: 02/01/18 02/02/18 02/03/18 06:59 06:59 06:59 Intake Total 1520 1620 Output Total 1275 1250 Balance 245 370 Result Diagrams: 02/02/18 05:28 02/02/18 05:28 Additional Labs: Labs reviewed by me Phys Exam - Physical Examination Constitutional: NAD HEENT: moist MMs Neck: supple Respiratory: clear to auscultation bilateral Cardiovascular: RRR Gastrointestinal: soft Neurological: moves all 4 limbs Psychiatric: normal affect Dx/Plan (1) Afib Code(s): I48.91 - UNSPECIFIED ATRIAL FIBRILLATION Status: Acute Comment: pt currently in sinus rhythm (2) Volvulus Code(s): K56.2 - VOLVULUS Status: Acute Comment: s/p R hemicolectomy (3) Thrombocytopenia Code(s): D69.6 - THROMBOCYTOPENIA, UNSPECIFIED Status: Resolved (4) High anion gap metabolic acidosis Code(s): E87.2 - ACIDOSIS Status: Resolved - Plan * . Review of Systems - Review of Systems Cardiovascular: negative: chest pain, palpitations, orthopnea, paroxysmal nocturnal dyspnea, edema, light headedness Gastrointestinal: negative: Nausea, Vomiting, Abdominal Pain, Diarrhea, Constipation, Melena, Hematochezia - Medications/Allergies Allergies/Adverse Reactions: Allergies Allergy/AdvReac Type Severity Reaction Status Date / Time diphenhydramine HCl Allergy Severe Verified 01/28/18 08:13 [From Benadryl] Hives Medications: Current Medications Albuterol/Ipratropium (Duoneb) 3 ml NEB Q4H PRN PRN Reason: Wheezing Clonidine (Catapres) 0.1 mg PO Q4H PRN PRN Reason: SBP>160 Enoxaparin Sodium (Lovenox) 40 mg SC 2100 [facility] Last Admin: 02/01/18 21:49 Dose: 40 mg Famotidine (Pepcid) 20 mg PO Q12HR [facility] Last Admin: 02/02/18 09:33 Dose: Not Given Famotidine (Pepcid) 20 mg SLOW IVP Q12HR [facility] Last Admin: 02/02/18 09:33 Dose: 20 mg Hydralazine HCl (Apresoline) 10 mg SLOW IVP Q4H PRN PRN Reason: SBP > 170 or DBP > 100 Acetaminophen 1,000 mg/ Device 100 mls @ 400 mls/hr IVPB Q6H PRN PRN Reason: Fever/Mild Pain Stop: 02/02/18 20:09 Metoprolol Tartrate (Lopressor) 25 mg PO BID [facility] Last Admin: 02/02/18 09:32 Dose: 25 mg Morphine Sulfate (Morphine) 2 mg SLOW IVP Q2H PRN PRN Reason: Mild Pain (1-3) Last Admin: 02/02/18 13:22 Dose: 2 mg Morphine Sulfate (Morphine) 4 mg SLOW IVP Q2H PRN PRN Reason: Severe Pain (7-10) Ondansetron HCl (Zofran) 4 mg IVP Q6H PRN PRN Reason: Nausea/Vomiting Last Admin: 01/31/18 21:23 Dose: 4 mg Promethazine HCl (Phenergan) 12.5 mg IM Q4H PRN PRN Reason: Nausea/Vomiting Sodium Chloride (Flush - Normal Saline) 10 ml IVF PRN PRN PRN Reason: Saline Flush Tramadol HCl (Ultram) 50 mg PO Q6H PRN PRN Reason: Mild Pain (1-3) 2ND LINE Trazodone HCl (Desyrel) 50 mg PO HSPRN PRN PRN Reason: Insomnia
--- NOTE | 2018-02-02 14:39 | PRG ---
DATE OF SERVICE: 02/02/2018 CHIEF COMPLAINT: She is postop right colectomy for cecal volvulus. Ms. Olsen still does not feel good. She has mild nausea. She is complaining of abdominal bloating. She is passing gas, but no bowel movement. OBJECTIVE: VITAL SIGNS: Pulse 74, respirations 16, and blood pressure 146/89. Urine output is adequate per shift at 500. LABORATORY DATA: White blood cell count is 5, hemoglobin is 15, platelet count is 158, and normal differential. Creatinine 0.88. ASSESSMENT: Postop right colectomy for cecal volvulus with persistent expected ileus. PLAN: Clear liquids until her nausea improves. She is getting up with a walking program and physical therapy. Dr. Harper is covering for me this weekend. Job ID: [id number]
[2018-02-02] MEDS: traMADol HCl 50 MG TAB PO PRN (20:54)
[2018-02-02] MEDS: Enoxaparin Sodium 40 MG/0.4 ML SYRINGE SC SCH (20:54)
--- NOTE | 2018-02-03 08:51 | PRG ---
DATE OF SERVICE: 02/03/2018 SUBJECTIVE: Ms. Olsen is doing better today. She denies nausea. No vomiting overnight. She is hungry. PHYSICAL EXAMINATION: VITAL SIGNS: She is afebrile. Vital signs are stable. ABDOMEN: Soft, minimally distended. The wound is healing well. There is no evidence of wound infection. ASSESSMENT: Postop right colon for cecal volvulus. PLAN: Slow improvement. Plans are to prison early next week. We will start advancing diet. Job ID: [id number]
[2018-02-03] MEDS: Famotidine/PF 20 mg/2ml Vial SLOW IVP SCH ×2 (09:15→21:30)
[2018-02-03] MEDS: Metoprolol Tartrate 25 MG TAB PO SCH ×2 (09:15→21:30)
[2018-02-03] MEDS: Famotidine 20 MG TAB PO SCH ×2 (09:16→21:30)
[2018-02-03] MEDS: Acetaminophen 325 MG/10.15 ML UDCUP PO PRN ×2 (09:18→21:41)
--- NOTE | 2018-02-03 18:42 | EKG ---
Test Reason : ABD PAIN Blood Pressure : / mmHG Vent. Rate : 077 BPM Atrial Rate : 077 BPM P-R Int : 130 ms QRS Dur : 080 ms QT Int : 378 ms P-R-T Axes : 090 -19 034 degrees QTc Int : 427 ms Normal sinus rhythm with sinus arrhythmia Normal ECG Confirmed by MOLLY PEREZ DO ([id number]), senior editor KOKI SANCHEZ ([id number]) on 02/03/2018 6:41:26 PM Referred By: ANA Confirmed By:MOLLY PEREZ DO
[2018-02-03] MEDS: Enoxaparin Sodium 40 MG/0.4 ML SYRINGE SC SCH (21:30)
[2018-02-04] MEDS: Metoprolol Tartrate 25 MG TAB PO SCH ×2 (08:44→20:18)
[2018-02-04] MEDS: Famotidine 20 MG TAB PO SCH ×2 (08:44→20:18)
[2018-02-04] MEDS: Famotidine/PF 20 mg/2ml Vial SLOW IVP SCH ×2 (08:45→20:19)
--- NOTE | 2018-02-04 12:48 | PDOC.PN ---
- Subjective Encounter Start Date: 02/04/18 Encounter Start Time: 08:20 Pt seen for followup re: atrial fibrillation. c/o nausea. No fevers or chills. - Objective Resuscitation Status - Order Detail: 01/30/18 11:45 Resuscitation Status Routine Resuscitation Status: DNAR: NO Resuscitation Discussed with: Per MD comment, discussed with patient and she understood MAR Reviewed: Yes Vital Signs & Weight: Vital Signs (12 hours) Temp Pulse Resp BP Pulse Ox 02/04/18 11:13 98.2 F 81 18 158/82 H 94 L 02/04/18 07:55 94 L 02/04/18 07:15 98.4 F 99 16 149/89 H 94 L 02/04/18 05:42 96 02/04/18 04:00 97.6 F 86 18 149/89 H 96 Weight Admit Weight 100 lb 9 oz Weight 100 lb 9 oz I&O: 02/03/18 02/04/18 02/05/18 06:59 06:59 06:59 Intake Total 1200 1260 Output Total 975 795 Balance 225 465 Result Diagrams: 02/04/18 15:30 02/04/18 15:30 Additional Labs: Labs reviewed by me Phys Exam - Physical Examination Constitutional: NAD HEENT: moist MMs Neck: supple Respiratory: clear to auscultation bilateral Cardiovascular: RRR Gastrointestinal: soft Neurological: moves all 4 limbs Psychiatric: normal affect Dx/Plan (1) Afib Code(s): I48.91 - UNSPECIFIED ATRIAL FIBRILLATION Status: Acute Comment: pt continues to be in sinus rhythm (2) Volvulus Code(s): K56.2 - VOLVULUS Status: Acute Comment: s/p R hemicolectomy (3) Thrombocytopenia Code(s): D69.6 - THROMBOCYTOPENIA, UNSPECIFIED Status: Resolved (4) High anion gap metabolic acidosis Code(s): E87.2 - ACIDOSIS Status: Resolved - Plan * . On PRN IV Zofran for nausea Review of Systems - Review of Systems Constitutional: negative: fever, chills, sweats, weakness, malaise Gastrointestinal: Nausea. negative: Vomiting, Abdominal Pain, Diarrhea, Constipation, Melena, Hematochezia - Medications/Allergies Allergies/Adverse Reactions: Allergies Allergy/AdvReac Type Severity Reaction Status Date / Time diphenhydramine HCl Allergy Severe Verified 01/28/18 08:13 [From Piter] Hives Medications: Current Medications Acetaminophen (Tylenol Elixir) 650 mg PO Q6H PRN PRN Reason: pain Last Admin: 02/03/18 21:41 Dose: 650 mg Albuterol/Ipratropium (Duoneb) 3 ml NEB Q4H PRN PRN Reason: Wheezing Clonidine (Catapres) 0.1 mg PO Q4H PRN PRN Reason: SBP>160 Enoxaparin Sodium (Lovenox) 40 mg SC 2100 [facility] Last Admin: 02/03/18 21:30 Dose: 40 mg Famotidine (Pepcid) 20 mg PO Q12HR [facility] Last Admin: 02/04/18 08:44 Dose: 20 mg Famotidine (Pepcid) 20 mg SLOW IVP Q12HR [facility] Last Admin: 02/04/18 08:45 Dose: Not Given Hydralazine HCl (Apresoline) 10 mg SLOW IVP Q4H PRN PRN Reason: SBP > 170 or DBP > 100 Metoprolol Tartrate (Lopressor) 25 mg PO BID [facility] Last Admin: 02/04/18 08:44 Dose: 25 mg Morphine Sulfate (Morphine) 2 mg SLOW IVP Q2H PRN PRN Reason: Mild Pain (1-3) Last Admin: 02/02/18 17:43 Dose: 2 mg Morphine Sulfate (Morphine) 4 mg SLOW IVP Q2H PRN PRN Reason: Severe Pain (7-10) Ondansetron HCl (Zofran) 4 mg IVP Q6H PRN PRN Reason: Nausea/Vomiting Last Admin: 01/31/18 21:23 Dose: 4 mg Promethazine HCl (Phenergan) 12.5 mg IM Q4H PRN PRN Reason: Nausea/Vomiting Sodium Chloride (Flush - Normal Saline) 10 ml IVF PRN PRN PRN Reason: Saline Flush Tramadol HCl (Ultram) 50 mg PO Q6H PRN PRN Reason: Mild Pain (1-3) 2ND LINE Last Admin: 02/02/18 20:54 Dose: 50 mg Trazodone HCl (Desyrel) 50 mg PO HSPRN PRN PRN Reason: Insomnia
[2018-02-04] MEDS: Ondansetron PF 4 MG/2 ML Vial IVP PRN (15:04)
--- NOTE | 2018-02-04 15:54 | RAD ---
ABDOMEN TWO VIEWS: INDICATIONS: History of colectomy with nausea and vomiting. COMPARISON: Prior CT of the abdomen and pelvis dated 01/28/2018. FINDINGS: A small amount of gas is suspected along the right hemidiaphragm on the upright images, likely relate d to the patient's postoperative stay. There are dilated loops of small bowel with a differential ai r-fluid level. Patchy areas of gas are likely present within portions of the remaining colon, likely transverse colon and descending colon. A small amount of gas is suspected in the region of the rect um. IVC filter is seen to the right of midline, at L3-L4. There are numerous surgical clips within the lower abdomen and pelvis. There is an anastomotic suture line within the right lower quadrant of the abdomen, which may be related to the patient's recent colectomy. Gallstones are seen within the right upper quadrant. There is a left hip endoprosthesis in place. IMPRESSION: 1. Partial small bowel obstruction versus diffuse ileus. 2. Small amount of gas overlying the right hemidiaphragm, likely related to the patient's recent pos toperative state. 3. Cholelithiasis. 4. Other chronic findings. POS: [facility]
[2018-02-04 15:55] LABS: #Lymphocytes 0.8 thou/uL (1.20-3.40); #Monocytes 0.5 thou/uL (0.11-0.59); #Neutrophils 6.2 thou/uL (1.40-6.50); %Eosinophils 0.2 % (0.0-10.0); %Lymphocytes 10.8 % (21.0-51.0); %Monocytes 6.2 % (0.0-10.0); %Neutrophils 82.9 % (42.0-75.0); Hemoglobin 16.4 g/dL (12.0-16.0); Mean Corpuscular HGB CONC 33.9 g/dL (32.0-36.0); Mean Corpuscular Hemoglobin 31.4 pg (27.0-31.0); Mean Corpuscular Volume 92.5 fL (78.0-98.0); Mean Platelet Volume 8.6 fL (7.4-10.4); Platelet Count 205 thou/uL (130-400); RBC Distribution Width 12.4 % (11.5-14.5); Red Blood Cell (RBC) Count 5.23 mill/uL (4.20-5.40); White Blood Cell (WBC) Count 7.5 thou/uL (4.8-10.8)
[2018-02-04] MEDS: Morphine 2 MG/ML SYRINGE SLOW IVP PRN ×2 (15:58→22:10)
[2018-02-04 16:11] LABS: Anion Gap 15 mmol/L (10-20); BUN (Urea Nitrogen) 30 mg/dL (9.8-20.1); Calc. Creatinine Clearance 30 mL/min (70-130); Calcium 9.3 mg/dL (7.8-10.44); Carbon Dioxide 24 mmol/L (23-31); Chloride 110 mmol/L (98-107); Estimated GFR-MDRD 52; Glucose 168 mg/dL (83-110); Magnesium 1.7 mg/dL (1.6-2.6); Phosphorus 3.6 mg/dL (2.3-4.7); Potassium 3.7 mmol/L (3.5-5.1); Sodium 145 mmol/L (136-145)
[2018-02-04] MEDS: Enoxaparin Sodium 40 MG/0.4 ML SYRINGE SC SCH (20:18)
[2018-02-05] MEDS: Famotidine/PF 20 mg/2ml Vial SLOW IVP SCH (07:38)
[2018-02-05] MEDS: Metoprolol Tartrate 25 MG TAB PO SCH ×2 (07:38→21:33)
[2018-02-05] MEDS: Famotidine 20 MG TAB PO SCH ×2 (07:38→21:33)
[2018-02-05] MEDS: Morphine 2 MG/ML SYRINGE SLOW IVP PRN (08:53)
--- NOTE | 2018-02-05 12:30 | PDOC.PN ---
- Subjective Encounter Start Date: 02/05/18 Encounter Start Time: 08:20 Pt seen for followup re: atrial fibrillation. c/o nausea. No chest pain, shortness of breath, fevers or chills. - Objective Resuscitation Status - Order Detail: 01/30/18 11:45 Resuscitation Status Routine Resuscitation Status: DNAR: NO Resuscitation Discussed with: Per MD comment, discussed with patient and she understood Vital Signs & Weight: Vital Signs (12 hours) Temp Pulse Resp BP Pulse Ox 02/05/18 11:14 98 F 79 18 186/74 H 95 02/05/18 07:12 97.8 F 86 18 156/79 H 95 Weight Admit Weight 100 lb 9 oz Weight 100 lb 9 oz I&O: 02/04/18 02/05/18 02/06/18 06:59 06:59 06:59 Intake Total 1260 550 Output Total 795 1125 Balance 465 -575 Result Diagrams: 02/06/18 06:55 02/06/18 06:55 Additional Labs: Labs reviewed by me Phys Exam - Physical Examination Constitutional: NAD HEENT: moist MMs Neck: supple Respiratory: clear to auscultation bilateral Cardiovascular: RRR Gastrointestinal: soft Neurological: moves all 4 limbs Psychiatric: normal affect Dx/Plan (1) Afib Code(s): I48.91 - UNSPECIFIED ATRIAL FIBRILLATION Status: Acute Comment: pt in sinus rhythm (2) Volvulus Code(s): K56.2 - VOLVULUS Status: Acute Comment: s/p R hemicolectomy (3) Thrombocytopenia Code(s): D69.6 - THROMBOCYTOPENIA, UNSPECIFIED Status: Resolved (4) High anion gap metabolic acidosis Code(s): E87.2 - ACIDOSIS Status: Resolved - Plan * . Pt awaiting CT abdo/pelvis to r/o bowel obstruction (vs ileus) Review of Systems - Review of Systems Cardiovascular: negative: chest pain, palpitations, orthopnea, paroxysmal nocturnal dyspnea, edema, light headedness Gastrointestinal: Nausea. negative: Vomiting, Abdominal Pain, Diarrhea, Constipation, Melena, Hematochezia - Medications/Allergies Allergies/Adverse Reactions: Allergies Allergy/AdvReac Type Severity Reaction Status Date / Time diphenhydramine HCl Allergy Severe Verified 01/28/18 08:13 [From Benadryl] Hives Medications: Current Medications Acetaminophen (Tylenol Elixir) 650 mg PO Q6H PRN PRN Reason: pain Last Admin: 02/03/18 21:41 Dose: 650 mg Albuterol/Ipratropium (Duoneb) 3 ml NEB Q4H PRN PRN Reason: Wheezing Clonidine (Catapres) 0.1 mg PO Q4H PRN PRN Reason: SBP>160 Enoxaparin Sodium (Lovenox) 40 mg SC 2100 [facility] Last Admin: 02/04/18 20:18 Dose: 40 mg Famotidine (Pepcid) 20 mg PO Q12HR [facility] Last Admin: 02/05/18 07:38 Dose: 20 mg Famotidine (Pepcid) 20 mg SLOW IVP Q12HR [facility] Last Admin: 02/05/18 07:38 Dose: Not Given Hydralazine HCl (Apresoline) 10 mg SLOW IVP Q4H PRN PRN Reason: SBP > 170 or DBP > 100 Metoprolol Tartrate (Lopressor) 25 mg PO BID [facility] Last Admin: 02/05/18 07:38 Dose: 25 mg Morphine Sulfate (Morphine) 2 mg SLOW IVP Q2H PRN PRN Reason: Mild Pain (1-3) Last Admin: 02/05/18 08:53 Dose: 2 mg Morphine Sulfate (Morphine) 4 mg SLOW IVP Q2H PRN PRN Reason: Severe Pain (7-10) Ondansetron HCl (Zofran) 4 mg IVP Q6H PRN PRN Reason: Nausea/Vomiting Last Admin: 02/04/18 15:04 Dose: 4 mg Promethazine HCl (Phenergan) 12.5 mg IM Q4H PRN PRN Reason: Nausea/Vomiting Sodium Chloride (Flush - Normal Saline) 10 ml IVF PRN PRN PRN Reason: Saline Flush Last Admin: 02/04/18 15:59 Dose: 10 ml Tramadol HCl (Ultram) 50 mg PO Q6H PRN PRN Reason: Mild Pain (1-3) 2ND LINE Last Admin: 02/02/18 20:54 Dose: 50 mg Trazodone HCl (Desyrel) 50 mg PO HSPRN PRN PRN Reason: Insomnia
[2018-02-05] MEDS ORDERED: Iopamidol 370 76% 50 ML VIAL FS ONE (12:44)
[2018-02-05] MEDS ORDERED: Iopamidol 370 76% 100 ML VIAL ONE (12:44)
[2018-02-05] MEDS: traMADol HCl 50 MG TAB PO PRN (13:32)
--- NOTE | 2018-02-05 14:21 | CT ---
CT OF THE ABDOMEN AND PELVIS WITH CONTRAST: COMPARISON: 01/28/2018. HISTORY: Postop right colectomy for volvulus. Lower abdominal pain. History of bladder cancer status post re moval. Evaluate for volvulus of the right colon. TECHNIQUE: Multiple contiguous axial images were obtained in a CT of the abdomen and pelvis with contrast. P.o. contrast was administered. Coronal reformats were performed. FINDINGS: An anastomotic staple line is seen in the rectum. The colon is normal in caliber without significant enlargement or volvulus. Evaluation of the pelvis is limited secondary to streak artifact from the patient's left hip prosthesis. The patient has an ostomy in the right lower quadrant of the abdomen. There are dilated loops of small bowel measuring up to 4.5 cm in size. The distal-most bowel loops heading up to the ostomy are decompressed with the rest of the small bowel loops being dilated. The transition point is difficult to see as it is likely in the right pelvis and there is streak artifac t in the pelvis. There are bubbles of free air scattered throughout the abdomen. Free fluid is also seen in the abdomen and pelvis. One of the bubbles of free air is along the patient's ostomy. There are gallstones in the gallbladder. The liver, kidneys, adrenal glands, spleen, and pancreas ar e unremarkable. An inferior vena cava filter is seen. No abdominal or pelvic lymphadenopathy are seen. There are sm all bilateral pleural effusions with adjacent atelectasis. Degenerative changes are seen in the spin e. There is fusion of both sacroiliac joints. IMPRESSION: 1. Diffuse small bowel distention may be secondary to postoperative ileus or bowel obstruction. 2. There are foci of free air in the abdomen, likely from recent surgery. POS: [facility]
--- NOTE | 2018-02-05 15:25 | PRG ---
DATE OF SERVICE: SUBJECTIVE: Ms. Olsen vomited yesterday, was made n.p.o. except ice chips. She is asking how many ice chips she can have this morning. She denies nausea currently. No vomiting overnight after stopping her full liquid diet. OBJECTIVE: GENERAL: This morning, she is afebrile. VITAL SIGNS: Blood pressure 186/74 and pulse 79. Urine output is good through her ileal conduit. ABDOMEN: Soft, diffuse, mildly tender, but less distended. She does have active bowel sounds. LABORATORY DATA: No new labs today. ASSESSMENT: Postop right colectomy for cecal volvulus with persistent ileus. PLAN: 1. We will do CAT scan today to rule out anastomotic leak or intraabdominal pathology. 2. I expect this to just be a prolonged expected ileus, may start TPN if not improved the next day or two. Job ID: [id number]
[2018-02-05] MEDS: D5 1/2 NS w/20 mEq KCL 1,000 ML IV SCH (16:03)
[2018-02-05] MEDS: Ondansetron PF 4 MG/2 ML Vial IVP PRN (21:32)
[2018-02-05] MEDS: Enoxaparin Sodium 40 MG/0.4 ML SYRINGE SC SCH (21:32)
[2018-02-06] MEDS: Famotidine/PF 20 mg/2ml Vial SLOW IVP SCH ×3 (01:33→21:20)
[2018-02-06] MEDS: Ondansetron PF 4 MG/2 ML Vial IVP PRN (04:04)
[2018-02-06 07:26] LABS: #Lymphocytes 0.9 thou/uL (1.20-3.40); #Monocytes 0.4 thou/uL (0.11-0.59); #Neutrophils 8.5 thou/uL (1.40-6.50); %Basophils 0.1 % (0.0-1.0); %Eosinophils 0.2 % (0.0-10.0); %Lymphocytes 9.5 % (21.0-51.0); %Monocytes 4.4 % (0.0-10.0); %Neutrophils 85.8 % (42.0-75.0); Hemoglobin 15.4 g/dL (12.0-16.0); Mean Corpuscular HGB CONC 32.1 g/dL (32.0-36.0); Mean Corpuscular Hemoglobin 30.1 pg (27.0-31.0); Mean Corpuscular Volume 93.9 fL (78.0-98.0); Mean Platelet Volume 8.4 fL (7.4-10.4); Platelet Count 273 thou/uL (130-400); RBC Distribution Width 12.6 % (11.5-14.5); Red Blood Cell (RBC) Count 5.11 mill/uL (4.20-5.40); White Blood Cell (WBC) Count 9.9 thou/uL (4.8-10.8)
[2018-02-06 07:33] LABS: Anion Gap 11 mmol/L (10-20); BUN (Urea Nitrogen) 27 mg/dL (9.8-20.1); Calc. Creatinine Clearance 31 mL/min (70-130); Calcium 8.9 mg/dL (7.8-10.44); Carbon Dioxide 25 mmol/L (23-31); Chloride 113 mmol/L (98-107); Estimated GFR-MDRD 54; Glucose 160 mg/dL (83-110); Potassium 3.8 mmol/L (3.5-5.1); Sodium 145 mmol/L (136-145)
[2018-02-06] MEDS: Metoprolol Tartrate 25 MG TAB PO SCH ×2 (09:00→21:20)
[2018-02-06] MEDS: Famotidine 20 MG TAB PO SCH ×2 (09:00→21:20)
--- NOTE | 2018-02-06 10:54 | PRG ---
DATE OF SERVICE: 02/06/2018 SUBJECTIVE: Ms. Olsen is able to tolerate some clear liquids overnight. She still has occasional nausea. She had a bowel movement. States that she is passing gas. OBJECTIVE: VITAL SIGNS: Blood pressure is 149/78, pulse 81, respirations 16. She is afebrile. ABDOMEN: Soft. It is distended, but she has bowel sounds. : Urostomy has clear urine. Midline incision healing well without evidence of infection. LABORATORY DATA: White blood cell count is 9, hemoglobin 15, platelet count is 273. Creatinine is 0.98, potassium is 3.8, and calcium is 8.9. ASSESSMENT: Postop right colon for cecal volvulus with prolonged mild persistent ileus. PLAN: She is not going to tolerate advancing her diet. We will place PICC line and start TPN. I think she needs 3 or 4 more days of supplemental nutrition prior to resuming regular food. Job ID: [id number]
--- NOTE | 2018-02-06 11:06 | PDOC.PN ---
- Subjective Encounter Start Date: 02/06/18 Encounter Start Time: 07:40 Pt seen for followup re: magaly schmitt. Reports nausea is better, tolerating food. - Objective Resuscitation Status - Order Detail: 01/30/18 11:45 Resuscitation Status Routine Resuscitation Status: DNAR: NO Resuscitation Discussed with: Per MD comment, discussed with patient and she understood MAR Reviewed: Yes Vital Signs & Weight: Vital Signs (12 hours) Temp Pulse Resp BP Pulse Ox 02/06/18 07:28 98.4 F 81 16 149/78 H 95 02/06/18 04:39 98.3 F 79 20 147/81 H 95 02/06/18 00:14 98.6 F 79 18 147/78 H 94 L Weight Admit Weight 100 lb 9 oz Weight 100 lb 9 oz I&O: 02/05/18 02/06/18 02/07/18 06:59 06:59 06:59 Intake Total 550 1330 Output Total 1125 1100 Balance -575 230 Result Diagrams: 02/06/18 06:55 02/06/18 06:55 Additional Labs: labs reviewed by me Phys Exam - Physical Examination Constitutional: NAD HEENT: moist MMs Neck: supple Respiratory: clear to auscultation bilateral Cardiovascular: RRR Gastrointestinal: soft Neurological: moves all 4 limbs Psychiatric: normal affect Dx/Plan (1) Afib Code(s): I48.91 - UNSPECIFIED ATRIAL FIBRILLATION Status: Acute Comment: pt currently in sinus rhythm (2) Volvulus Code(s): K56.2 - VOLVULUS Status: Acute Comment: s/p R hemicolectomy, started on diet (3) Thrombocytopenia Code(s): D69.6 - THROMBOCYTOPENIA, UNSPECIFIED Status: Resolved (4) High anion gap metabolic acidosis Code(s): E87.2 - ACIDOSIS Status: Resolved - Plan * . Review of Systems - Review of Systems Constitutional: weakness. negative: fever, chills, sweats, malaise Gastrointestinal: Nausea. negative: Vomiting, Abdominal Pain, Diarrhea, Constipation, Melena, Hematochezia - Medications/Allergies Allergies/Adverse Reactions: Allergies Allergy/AdvReac Type Severity Reaction Status Date / Time diphenhydramine HCl Allergy Severe Verified 01/28/18 08:13 [From Benadryl] Hives Medications: Current Medications Acetaminophen (Tylenol Elixir) 650 mg PO Q6H PRN PRN Reason: pain Last Admin: 02/03/18 21:41 Dose: 650 mg Albuterol/Ipratropium (Duoneb) 3 ml NEB Q4H PRN PRN Reason: Wheezing Clonidine (Catapres) 0.1 mg PO Q4H PRN PRN Reason: SBP>160 Enoxaparin Sodium (Lovenox) 40 mg SC 2100 [facility] Last Admin: 02/05/18 21:32 Dose: 40 mg Famotidine (Pepcid) 20 mg PO Q12HR [facility] Last Admin: 02/06/18 09:00 Dose: 20 mg Famotidine (Pepcid) 20 mg SLOW IVP Q12HR [facility] Last Admin: 02/06/18 10:18 Dose: Not Given Hydralazine HCl (Apresoline) 10 mg SLOW IVP Q4H PRN PRN Reason: SBP > 170 or DBP > 100 Potassium Chloride/Dextrose/Sod Cl (D5 1/2 Ns W/20 Meq Kcl) 1,000 mls @ 50 mls/ hr IV .Q20H [facility] Last Admin: 02/05/18 16:03 Dose: 1,000 mls Sodium Acetate 40 meq/ Sodium Phosphate 30 mmol/ Potassium Chloride 60 meq/ Calcium Gluconate 10 meq/ Magnesium Sulfate 10 meq/ Multivitamins 10 ml/ Chromium/Copper/Manganese/Seleni/Zn 5 ml/ Fat Emulsion Intravenous 250 ml/ Dextrose/Water/ Sterile Water/Amino Acids 1,669.2021 mls @ 69.55 mls/hr IV INF [facility] Metoprolol Tartrate (Lopressor) 25 mg PO BID [facility] Last Admin: 02/06/18 09:00 Dose: 25 mg Morphine Sulfate (Morphine) 2 mg SLOW IVP Q2H PRN PRN Reason: Mild Pain (1-3) Last Admin: 02/05/18 08:53 Dose: 2 mg Morphine Sulfate (Morphine) 4 mg SLOW IVP Q2H PRN PRN Reason: Severe Pain (7-10) Ondansetron HCl (Zofran) 4 mg IVP Q6H PRN PRN Reason: Nausea/Vomiting Last Admin: 02/06/18 04:04 Dose: 4 mg Promethazine HCl (Phenergan) 12.5 mg IM Q4H PRN PRN Reason: Nausea/Vomiting Sodium Chloride (Flush - Normal Saline) 10 ml IVF PRN PRN PRN Reason: Saline Flush Last Admin: 02/05/18 21:33 Dose: 10 ml Tramadol HCl (Ultram) 50 mg PO Q6H PRN PRN Reason: Mild Pain (1-3) 2ND LINE Last Admin: 02/05/18 13:32 Dose: 50 mg Trazodone HCl (Desyrel) 50 mg PO HSPRN PRN PRN Reason: Insomnia
[2018-02-06] MEDS: D5 1/2 NS w/20 mEq KCL 1,000 ML IV SCH (11:38)
--- NOTE | 2018-02-06 16:02 | SPC ---
LEFT UPPER EXTREMITY PICC LINE PLACEMENT WITH ULTRASOUND GUIDANCE: Date: 02/06/18 HISTORY: Failure to thrive. EXPOSURE: 0.7 minutes. 1229 mGy*cm^2. FINDINGS: Successful left upper extremity PICC line placement with ultrasound guidance. Dual lumen catheter ter minates in the superior vena cava. Trim length is 44 cm. TECHNIQUE: Consent obtained to perform a left upper extremity PICC line placement with ultrasound guidance. Left arm was prepped and draped in the sterile fashion. 1% lidocaine, buffered with sodium bicarbonate, w as used for local anesthesia. Under [id number] guidance, micropuncture needle was used to cannulate the brachial vein. A 0.018 guidewire was advanced through the needle to the level of the right atrium . Tract was dilated. Dual lumen 5 Japanese catheter was advanced over the wire. Wire was removed. Both lumen flushed and aspirated without difficulty. Trim length is 44 cm. Distal tip projects over the kramer perior vena cava. IMPRESSION: Successful left upper extremity PICC line placement with ultrasound guidance. POS: EAMON
[2018-02-06] MEDS: SODIUM PHOSPHATE IV SCH (16:14)
[2018-02-06] MEDS: POTASSIUM CHLORIDE IV SCH (16:14)
[2018-02-06] MEDS: [UNRECOGNIZED DRUG - OTHER] IV SCH (16:14)
[2018-02-06] MEDS: SODIUM ACETATE IV SCH (16:14)
[2018-02-06] MEDS: Enoxaparin Sodium 40 MG/0.4 ML SYRINGE SC SCH (21:20)
[2018-02-07] MEDS: Morphine 2 MG/ML SYRINGE SLOW IVP PRN (04:44)
[2018-02-07] MEDS: Famotidine 20 MG TAB PO SCH ×2 (08:04→19:46)
[2018-02-07] MEDS: Metoprolol Tartrate 25 MG TAB PO SCH ×2 (08:04→19:45)
--- NOTE | 2018-02-07 09:38 | PRG ---
DATE OF SERVICE: 02/07/2018 SUBJECTIVE: Ms. Olsen tolerates the clear liquids without difficulty. No vomiting. No nausea. She has mild abdominal pain. She had two bowel movements yesterday, but not passing a lot of gas. She still states she feels mildly bloated. OBJECTIVE: VITAL SIGNS: Blood pressure 136/74, pulse 82, respirations 18. Urine output is good. ABDOMEN: Soft, minimally distended, but there are active bowel sounds. Her midline incision is healing well. ASSESSMENT: Postop right colectomy for cecal volvulus with persistent expected ileus. PLAN: TPN started. Await return of bowel function. Needs to be more active with physical therapy. We will advance to full liquids as tolerated. Job ID: [id number]
--- NOTE | 2018-02-07 11:52 | PDOC.PN ---
- Subjective Encounter Start Date: 02/07/18 Encounter Start Time: 08:00 Pt seen for followup re: atrial fibrillation. Feels better, tolerating liquids. - Objective Resuscitation Status - Order Detail: 01/30/18 11:45 Resuscitation Status Routine Resuscitation Status: DNAR: NO Resuscitation Discussed with: Per MD comment, discussed with patient and she understood Vital Signs & Weight: Vital Signs (12 hours) Temp Pulse Resp BP Pulse Ox 02/07/18 08:00 96 02/07/18 07:56 98.3 F 82 18 136/74 96 02/07/18 04:21 98.5 F 77 20 133/67 96 02/07/18 00:10 98.3 F 78 18 137/72 94 L Weight Admit Weight 100 lb 9 oz Weight 100 lb 9 oz I&O: 02/06/18 02/07/18 02/08/18 06:59 06:59 06:59 Intake Total 1330 1243 Output Total 1100 450 Balance 230 793 Result Diagrams: 02/06/18 06:55 02/06/18 06:55 Phys Exam - Physical Examination Constitutional: NAD HEENT: moist MMs Neck: supple Respiratory: clear to auscultation bilateral Cardiovascular: RRR Gastrointestinal: soft Neurological: moves all 4 limbs Psychiatric: normal affect Dx/Plan (1) Afib Code(s): I48.91 - UNSPECIFIED ATRIAL FIBRILLATION Status: Acute Comment: pt is in sinus rhythm (2) Volvulus Code(s): K56.2 - VOLVULUS Status: Acute Comment: s/p R hemicolectomy (3) Moderate protein-calorie malnutrition Code(s): E44.0 - MODERATE PROTEIN-CALORIE MALNUTRITION Status: Acute Comment : started on TPN (4) Thrombocytopenia Code(s): D69.6 - THROMBOCYTOPENIA, UNSPECIFIED Status: Resolved (5) High anion gap metabolic acidosis Code(s): E87.2 - ACIDOSIS Status: Resolved - Plan * . Review of Systems - Review of Systems Respiratory: negative: Cough, Shortness of Breath, SOB with Excertion, Pleuritic Pain, Wheezing Cardiovascular: negative: chest pain, palpitations, orthopnea, paroxysmal nocturnal dyspnea, edema, light headedness - Medications/Allergies Allergies/Adverse Reactions: Allergies Allergy/AdvReac Type Severity Reaction Status Date / Time diphenhydramine HCl Allergy Severe Verified 01/28/18 08:13 [From Piter] Hives Medications: Current Medications Acetaminophen (Tylenol Elixir) 650 mg PO Q6H PRN PRN Reason: pain Last Admin: 02/03/18 21:41 Dose: 650 mg Albuterol/Ipratropium (Duoneb) 3 ml NEB Q4H PRN PRN Reason: Wheezing Clonidine (Catapres) 0.1 mg PO Q4H PRN PRN Reason: SBP>160 Enoxaparin Sodium (Lovenox) 40 mg SC 2100 [facility] Last Admin: 02/06/18 21:20 Dose: 40 mg Famotidine (Pepcid) 20 mg PO Q12HR [facility] Last Admin: 02/07/18 08:04 Dose: 20 mg Famotidine (Pepcid) 20 mg SLOW IVP Q12HR [facility] Last Admin: 02/06/18 21:20 Dose: Not Given Hydralazine HCl (Apresoline) 10 mg SLOW IVP Q4H PRN PRN Reason: SBP > 170 or DBP > 100 Potassium Chloride/Dextrose/Sod Cl (D5 1/2 Ns W/20 Meq Kcl) 1,000 mls @ 50 mls/ hr IV .Q20H [facility] Last Admin: 02/06/18 11:38 Dose: 1,000 mls Sodium Acetate 40 meq/ Sodium Phosphate 30 mmol/ Potassium Chloride 60 meq/ Calcium Gluconate 10 meq/ Magnesium Sulfate 10 meq/ Multivitamins 10 ml/ Chromium/Copper/Manganese/Seleni/Zn 5 ml/ Fat Emulsion Intravenous 250 ml/ Dextrose/Water/ Sterile Water/Amino Acids 1,669.2021 mls @ 69.55 mls/hr IV INF [facility] Last Admin: 02/06/18 16:14 Dose: 1,669.2021 mls Metoprolol Tartrate (Lopressor) 25 mg PO BID [facility] Last Admin: 02/07/18 08:04 Dose: 25 mg Morphine Sulfate (Morphine) 2 mg SLOW IVP Q2H PRN PRN Reason: Mild Pain (1-3) Last Admin: 02/07/18 04:44 Dose: 2 mg Morphine Sulfate (Morphine) 4 mg SLOW IVP Q2H PRN PRN Reason: Severe Pain (7-10) Ondansetron HCl (Zofran) 4 mg IVP Q6H PRN PRN Reason: Nausea/Vomiting Last Admin: 02/06/18 04:04 Dose: 4 mg Promethazine HCl (Phenergan) 12.5 mg IM Q4H PRN PRN Reason: Nausea/Vomiting Sodium Chloride (Flush - Normal Saline) 10 ml IVF PRN PRN PRN Reason: Saline Flush Last Admin: 02/06/18 21:20 Dose: 10 ml Tramadol HCl (Ultram) 50 mg PO Q6H PRN PRN Reason: Mild Pain (1-3) 2ND LINE Last Admin: 02/05/18 13:32 Dose: 50 mg Trazodone HCl (Desyrel) 50 mg PO HSPRN PRN PRN Reason: Insomnia
[2018-02-07] MEDS: Famotidine/PF 20 mg/2ml Vial SLOW IVP SCH ×2 (15:03→19:46)
[2018-02-07] MEDS: D5 1/2 NS w/20 mEq KCL 1,000 ML IV SCH ×2 (15:03→19:46)
[2018-02-07] MEDS: POTASSIUM CHLORIDE IV SCH (15:26)
[2018-02-07] MEDS: SODIUM PHOSPHATE IV SCH (15:26)
[2018-02-07] MEDS: SODIUM ACETATE IV SCH (15:26)
[2018-02-07] MEDS: [UNRECOGNIZED DRUG - OTHER] IV SCH (15:26)
[2018-02-07] MEDS: Enoxaparin Sodium 40 MG/0.4 ML SYRINGE SC SCH (19:45)
[2018-02-08 04:55] LABS: Anion Gap 11 mmol/L (10-20); BUN (Urea Nitrogen) 25 mg/dL (9.8-20.1); Calc. Creatinine Clearance 40 mL/min (70-130); Calcium 8.6 mg/dL (7.8-10.44); Carbon Dioxide 25 mmol/L (23-31); Chloride 111 mmol/L (98-107); Estimated GFR-MDRD 74; Glucose 127 mg/dL (83-110); Magnesium 1.9 mg/dL (1.6-2.6); Phosphorus 2.8 mg/dL (2.3-4.7); Potassium 3.8 mmol/L (3.5-5.1); Sodium 143 mmol/L (136-145)
[2018-02-08 05:16] LABS: Band 3 % (5-11); Hemoglobin 14.3 g/dL (12.0-16.0); Lymphocytes 5 % (21-51); MDiff Complete? YES; Mean Corpuscular HGB CONC 33.5 g/dL (32.0-36.0); Mean Corpuscular Volume 92.6 fL (78.0-98.0); Mean Platelet Volume 8.9 fL (7.4-10.4); Monocytes 3 % (0-10); Neutrophil 88 % (42-75); Platelet Count 186 thou/uL (130-400); RBC Distribution Width 12.5 % (11.5-14.5); Reactive Lymphocytes 1 % (0-10); Red Blood Cell (RBC) Count 4.61 mill/uL (4.20-5.40); White Blood Cell (WBC) Count 13.4 thou/uL (4.8-10.8)
[2018-02-08] MEDS: Metoprolol Tartrate 25 MG TAB PO SCH ×2 (07:45→20:08)
[2018-02-08] MEDS: Famotidine 20 MG TAB PO SCH ×2 (07:45→20:09)
--- NOTE | 2018-02-08 10:14 | PRG ---
DATE OF SERVICE: 02/08/2018 SUBJECTIVE: Ms. Olsen has no complaints. She notes some reflux overnight with the tomato soup. However, she continues to pass gas. She is having bowel movements. OBJECTIVE: VITAL SIGNS: Blood pressure 149/77, pulse 78, respirations 18. She is afebrile. CHEST: Clear. HEART: Regular rate and rhythm. ABDOMEN: Soft, minimally distended, less distended with active bowel sounds. Midline wound healing well. LABORATORY DATA: White blood cell count is 13, hemoglobin 14, creatinine 0.75. ASSESSMENT: Postoperative right colon with slow resolution of ileus. CT scan two days ago showed no evidence of leak. PLAN: Advance to mechanical soft diet, and see how she does. Possible penitentiary bed tomorrow. Job ID: [id number]
[2018-02-08] MEDS: Famotidine/PF 20 mg/2ml Vial SLOW IVP SCH ×2 (11:40→20:08)
[2018-02-08] MEDS ORDERED: Heparin 1,000 UNITS/ML VIAL ONE (14:58)
[2018-02-08] MEDS: POTASSIUM CHLORIDE IV SCH (15:58)
[2018-02-08] MEDS: SODIUM ACETATE IV SCH (15:58)
[2018-02-08] MEDS: [UNRECOGNIZED DRUG - OTHER] IV SCH (15:58)
[2018-02-08] MEDS: SODIUM PHOSPHATE IV SCH (15:58)
[2018-02-08] MEDS: Enoxaparin Sodium 40 MG/0.4 ML SYRINGE SC SCH (20:08)
[2018-02-08] MEDS: D5 1/2 NS w/20 mEq KCL 1,000 ML IV SCH (20:09)
[2018-02-08] MEDS: traMADol HCl 50 MG TAB PO PRN (21:14)
[2018-02-09] MEDS: Famotidine 20 MG TAB PO SCH (09:20)
[2018-02-09] MEDS: Famotidine/PF 20 mg/2ml Vial SLOW IVP SCH (09:20)
[2018-02-09] MEDS: Metoprolol Tartrate 25 MG TAB PO SCH (09:20)
[2018-02-09 14:40] VITALS: BP 116/70; TEMP 98.2
--- NOTE | 2018-02-10 08:35 | DIS ---
DATE OF ADMISSION: 01/28/2018 DATE OF DISCHARGE: 02/09/2018 ADMITTING DIAGNOSES: 1. Cecal volvulus. 2. Chronic deconditioning. 3. Hypertension. DISCHARGE DIAGNOSES: 1. Cecal volvulus. 2. Chronic deconditioning. 3. Hypertension. 4. Atrial fibrillation. PROCEDURES: 1. Right colectomy by Dr. Martin without complication. 2. PICC line. CONDITION AT DISCHARGE: Improved. STAFF: Dr. Martin. HOSPITAL COURSE: The patient was admitted with small-bowel obstruction caused by cecal volvulus. She underwent emergent right colectomy. Postop course was complicated by expected postop ileus as well as chronic deconditioning. She had a period of atrial fibrillation with RVR, was seen, was taken over to telemetry, had Cardiology consult. She converted on her own and was transferred back to the surgical floor. The patient's late hospitalization was limited by her deconditioning, weakness, and inability to walk much. She had persistent bloating and occasional nausea and vomiting, although she was having bowel function. She was started on TPN temporarily when she had a series of multiple nausea days in a row. On the day of discharge, she is doing better, she is having bowel movements, she is passing gas. Her abdomen is soft. Her wounds are healing well. She is discharged to longterm. She will follow up with me in 2 weeks. Job ID: [id number]
== END 2018-02-09 16:38 | disposition home or self-care (01) | DRG 330 ==
LOC: ERS 02:43 → T4-B 07:49 → SURG A 10:48 → SURG B 13:30 → 2NO 01-30 10:55 → SURG B 02-01 19:53
PROVIDERS: ADMIT Surgery; ATTEND Surgery
PROC: 0DTF0ZZ Resection of Right Large Intestine, Open Approach (ICD-10-PCS; principal; 2018-01-28)
PROC: 02H633Z Insertion of Infusion Device into Right Atrium, Percutaneous Approach (ICD-10-PCS; 2018-02-06)
DX: K56.2 Volvulus (principal); I97.89 Other postprocedural complications and disorders of the circulatory system, not elsewhere classified; E87.2 Acidosis; N39.0 Urinary tract infection, site not specified; Z85.038 Personal history of other malignant neoplasm of large intestine; Z85.51 Personal history of malignant neoplasm of bladder; I12.9 Hypertensive chronic kidney disease with stage 1 through stage 4 chronic kidney disease, or unspecified chronic kidney disease; N18.3 Chronic kidney disease, stage 3 (moderate); M81.0 Age-related osteoporosis without current pathological fracture; K56.7 Ileus, unspecified; D69.6 Thrombocytopenia, unspecified; K57.90 Diverticulosis of intestine, part unspecified, without perforation or abscess without bleeding
CPT/HCPCS: 36415; 36569; 74019; 74177; 80048; 80053; 81003; 81015; 82553; 83605; 83690; 83735; 83880; 84100; 84443; 84484; 85014; 85018; 85025; 85049; 87086; 88307; 93005; 93010; 93306; 94760; 96361; 96365; 96375; A4217; G8978-GP-CL; G8979-GP-CI; G8979-GP-CK; G8987-GO-CK; G8988-GO-CJ; J0131; J0694; J0696; J1642; J1644; J1650; J1956; J2001; J2270; J2405; J2704; J3010; J3475; J3480; J3490; J7050; S0028